=== PATIENT | female | born 1955 | race African-American/Black ===

== ENCOUNTER 2017-05-29 08:37 | Outpatient (CLI) | payer OTHER ==
[~2017-05-29 08:37] MED LIST: LABE200T28 PO; LON10 PO
[2017-05-29] MEDS ORDERED: IOHEXOL 100 ML IV ONE (08:58)
[2017-05-29] MEDS ORDERED: DIATR MEGLU/DIATRIZ SOD 30 ML SOLUTION PO ONE (08:58)
== END 2017-05-29 20:39 | disposition home or self-care (01) ==
LOC: SCT 08:37
PROVIDERS: ATTEND Surgery
DX: K81.9 Cholecystitis, unspecified (principal); K42.9 Umbilical hernia without obstruction or gangrene; I70.8 Atherosclerosis of other arteries; Z90.49 Acquired absence of other specified parts of digestive tract
CPT/HCPCS: 74177; Q9964; Q9967

== ENCOUNTER 2017-08-28 20:01 | Inpatient (IN) | payer OTHER ==
[~2017-08-28] VITALS: Ht 177.8 cm; Wt 78.5 kg
[2017-08-28 20:12] VITALS: BP_SYST 141
[2017-08-28] MEDS ORDERED: NACL 0.9% 1,000 ML IV ONE (20:15)
[2017-08-28] MEDS ORDERED: LIDOCAINE 1% 10 MG/ML, 20 ML MDV INJ ONE (20:30)
[2017-08-28 21:00] LABS: BASOPHILS % (AUTO) 1.2 % (0.0-2.0); EOSINOPHILS # (AUTO) 0.1 K/uL (0.0-0.4); EOSINOPHILS % (AUTO) 2.1 % (0.0-4.0); HEMATOCRIT 37.3 % (36-48); HEMOGLOBIN 12.4 g/dL (12.0-16.0); LYMPHOCYTES # (AUTO) 0.6 K/uL (1.0-5.5); LYMPHOCYTES % (AUTO) 22.9 % (20.5-51.5); MEAN CORPUSCULAR HEMOGLOBIN 32 pg (27-31); MEAN CORPUSCULAR HGB CONC 33 % (32-36); MEAN CORPUSCULAR VOLUME 95 fL (79.0-98.0); MONOCYTES # (AUTO) 0.1 K/uL (0.0-1.0); MONOCYTES % (AUTO) 3.2 % (1.7-9.3); NEUTROPHILS # (AUTO) 1.9 K/uL (1.8-7.7); NEUTROPHILS % (AUTO) 70.6 % (40.0-70.0); PLATELET COUNT (AUTO) 256 K/uL (130-430); RED BLOOD CELL COUNT(AUTO) 3.91 MIL/uL (4.2-6.2); RED CELL DISTRIBUTION WIDTH 12.7 % (9.0-15.0)
[2017-08-28 21:02] LABS: CALCIUM 9.3 mg/dL (8.4-11.0); CREATININE 1.01 mg/dL (0.55-1.30); POTASSIUM 3.7 mmol/L (3.5-5.1)
[2017-08-28 21:04] LABS: WHITE BLOOD COUNT (AUTO) 2.8 K/uL (4.8-10.8)
[2017-08-28 21:07] LABS: TOTAL BILIRUBIN 0.4 mg/dL (0.0-1.0)
[2017-08-28] MEDS ORDERED: HYG25 PO (23:04)
[2017-08-28] MEDS ORDERED: LIP80 PO (23:04)
[2017-08-28] MEDS ORDERED: DIAZ10TA PO (23:05)
[2017-08-28] MEDS ORDERED: OMEP40CA33 PO (23:05)
[2017-08-28] MEDS ORDERED: CYCL-10 PO (23:06)
[2017-08-28] MEDS ORDERED: PHE25 PO (23:06)
[2017-08-28] MEDS ORDERED: HYDR4TAB26 PO (23:06)
[2017-08-28] MEDS ORDERED: ASCO500T20 PO (23:07)
[2017-08-28] MEDS ORDERED: CHOL500052 PO (23:07)
[2017-08-28] MEDS ORDERED: POTA-118 PO (23:08)
[2017-08-28 23:12] VITALS: BP_SYST 129
[2017-08-28] MEDS ORDERED: CYCLOBENZAPRINE HCL 10 MG TABLET (FLEXERIL) PO PRN (23:30)
[2017-08-28] MEDS ORDERED: ONDANSETRON HCL 4 MG/2 ML VIAL IVP PRN (23:30)
[2017-08-28] MEDS ORDERED: DIAZEPAM 5 MG TABLET (VALIUM) PO ONE (23:45)
[2017-08-29] MEDS: KCL 20 mEq in D5NS 1000 mL 1,000 ML IV SCH ×2 (00:12→12:52)
[2017-08-29] MEDS: MORPHINE 2 MG/ML INJ. SYRINGE IVP PRN ×4 (03:51→21:05)
[2017-08-29 07:00] LABS: BASOPHILS % (AUTO) 1.3 % (0.0-2.0); EOSINOPHILS # (AUTO) 0.1 K/uL (0.0-0.4); EOSINOPHILS % (AUTO) 2.3 % (0.0-4.0); HEMATOCRIT 33.1 % (36-48); HEMOGLOBIN 11.1 g/dL (12.0-16.0); LYMPHOCYTES # (AUTO) 1.4 K/uL (1.0-5.5); LYMPHOCYTES % (AUTO) 45.1 % (20.5-51.5); MEAN CORPUSCULAR HEMOGLOBIN 32 pg (27-31); MEAN CORPUSCULAR HGB CONC 34 % (32-36); MEAN CORPUSCULAR VOLUME 95 fL (79.0-98.0); MONOCYTES # (AUTO) 0.2 K/uL (0.0-1.0); MONOCYTES % (AUTO) 8.4 % (1.7-9.3); NEUTROPHILS # (AUTO) 1.2 K/uL (1.8-7.7); NEUTROPHILS % (AUTO) 42.9 % (40.0-70.0); PLATELET COUNT (AUTO) 220 K/uL (130-430); RED CELL DISTRIBUTION WIDTH 12.8 % (9.0-15.0); WHITE BLOOD COUNT (AUTO) 2.9 K/uL (4.8-10.8)
[2017-08-29 07:13] LABS: PROTHROMBIN TIME 10.3 SECS (9.5-12.5)
[2017-08-29 07:31] LABS: ALBUMIN 3.4 g/dL (3.4-4.8); CALCIUM 9.1 mg/dL (8.4-11.0); CREATININE 1.11 mg/dL (0.55-1.30); POTASSIUM 3.2 mmol/L (3.5-5.1); TOTAL BILIRUBIN 0.4 mg/dL (0.0-1.0)
[2017-08-29 08:46] VITALS: BP_SYST 166
[2017-08-29] MEDS: LABETALOL HCL 100 MG TABLET PO SCH ×2 (08:48→21:06)
[2017-08-29] MEDS: PANTOPRAZOLE SODIUM 40 MG/VIAL (PROTONIX) IVP SCH (08:49)
[2017-08-29] MEDS: ENOXAPARIN SODIUM 40 MG/0.4 ML SYRINGE SUBCUT SCH (08:49)
[2017-08-29] MEDS: DIAZEPAM 5 MG TABLET (VALIUM) PO SCH ×3 (08:49→21:07)
[2017-08-29] MEDS ORDERED: POTASSIUM CHLORIDE 10 MEQ TAB.PRT.SR PO SCH (09:00)
[2017-08-29 11:21] VITALS: BP_SYST 135
[2017-08-29] MEDS ORDERED: POTASSIUM CHLORIDE 20 MEQ TAB.PRT.SR PO ONE (11:30)
[2017-08-29 15:21] VITALS: BP_SYST 119
[2017-08-29 19:15] VITALS: BP_SYST 143
[2017-08-30 00:42] VITALS: BP_SYST 136
[2017-08-30] MEDS: MORPHINE 2 MG/ML INJ. SYRINGE IVP PRN ×3 (01:41→14:09)
[2017-08-30 03:06] LABS: BILIRUBIN,URINE NEGATIVE (NEGATIVE); BLOOD, URINE NEGATIVE (NEGATIVE); CLARITY/URINE CLEAR (CLEAR); COLOR,URINE YELLOW (YELLOW); GLUCOSE,URINE NEGATIVE (NEGATIVE); KETONES,URINE NEGATIVE (NEGATIVE); LEUKOCYTE ESTERASE ,URINE NEGATIVE (NEGATIVE); NITRITE, URINE NEGATIVE (NEGATIVE); PROTEIN URINE NEGATIVE (NEGATIVE); UROBILINOGEN,URINE 0.2 (0.2-1.0)
[2017-08-30] MEDS: KCL 20 mEq in D5NS 1000 mL 1,000 ML IV SCH ×2 (05:31→14:32)
[2017-08-30 06:45] LABS: BASOPHILS % (AUTO) 0.8 % (0.0-2.0); EOSINOPHILS # (AUTO) 0.1 K/uL (0.0-0.4); EOSINOPHILS % (AUTO) 2.3 % (0.0-4.0); HEMATOCRIT 32.3 % (36-48); HEMOGLOBIN 11.1 g/dL (12.0-16.0); LYMPHOCYTES # (AUTO) 1.4 K/uL (1.0-5.5); LYMPHOCYTES % (AUTO) 44.9 % (20.5-51.5); MEAN CORPUSCULAR HEMOGLOBIN 33 pg (27-31); MEAN CORPUSCULAR HGB CONC 34 % (32-36); MEAN CORPUSCULAR VOLUME 95 fL (79.0-98.0); MONOCYTES # (AUTO) 0.3 K/uL (0.0-1.0); MONOCYTES % (AUTO) 9.8 % (1.7-9.3); NEUTROPHILS # (AUTO) 1.3 K/uL (1.8-7.7); PLATELET COUNT (AUTO) 212 K/uL (130-430); RED CELL DISTRIBUTION WIDTH 12.6 % (9.0-15.0); WHITE BLOOD COUNT (AUTO) 3.1 K/uL (4.8-10.8)
[2017-08-30 07:28] LABS: ALBUMIN 3.3 g/dL (3.4-4.8); CALCIUM 8.9 mg/dL (8.4-11.0); CREATININE 0.85 mg/dL (0.55-1.30); POTASSIUM 3.6 mmol/L (3.5-5.1); TOTAL BILIRUBIN 0.4 mg/dL (0.0-1.0)
[2017-08-30] MEDS ORDERED: IOHEXOL 50 ML IV ONE (08:36)
[2017-08-30] MEDS: DIAZEPAM 5 MG TABLET (VALIUM) PO SCH ×2 (09:00→14:55)
[2017-08-30] MEDS: LABETALOL HCL 100 MG TABLET PO SCH ×2 (09:00→12:29)
[2017-08-30] MEDS ORDERED: ONDANSETRON HCL 4 MG/2 ML VIAL IVP PRN (09:45)
[2017-08-30] MEDS ORDERED: fentaNYL CITRATE/PF 100 MCG/2 ML AMP IVP PRN ×2 (09:45)
[2017-08-30 10:41] VITALS: BP_SYST 136
[2017-08-30] MEDS ORDERED: MIDAZOLAM HCL 5 MG/ML VIAL (VERSED) IV ONE (10:41)
[2017-08-30] MEDS ORDERED: PROPOFOL 200MG/ 20ML VIAL (DIPRIVAN) IV ONE (10:41)
[2017-08-30] MEDS ORDERED: INDOMETHACIN 50 MG SUPP.RECT ONE (10:41)
[2017-08-30] MEDS ORDERED: hydrALAZINE HCL 20 MG/ML VIAL ONE (10:41)
[2017-08-30] MEDS ORDERED: LR 1,000 ML IV.SOLN IV ONE (10:41)
[2017-08-30] MEDS ORDERED: NS IRRIG SOLN 1000 ML IR ONE (10:41)
[2017-08-30 11:12] LABS: NEUTROPHILS % (AUTO) 42.2 % (40.0-70.0)
[2017-08-30 11:30] VITALS: BP_SYST 168
[2017-08-30] MEDS: PANTOPRAZOLE SODIUM 40 MG/VIAL (PROTONIX) IVP SCH (12:28)
[2017-08-30] MEDS: ENOXAPARIN SODIUM 40 MG/0.4 ML SYRINGE SUBCUT SCH (12:28)
[2017-08-30] MEDS ORDERED: DIATR MEGLU/DIATRIZ SOD 30 ML SOLUTION PO ONE (14:57)
[2017-08-30] MEDS ORDERED: MORPHINE 2 MG/ML INJ. SYRINGE IVP PRN (15:00)
[2017-08-30] MEDS ORDERED: MORPHINE 4 MG/ML INJ. SYRINGE ONE (15:12)
[2017-08-30 16:00] VITALS: BP_SYST 195
[2017-08-30] MEDS: HYDROmorphone 2 MG/ML VIAL IVP PRN ×2 (17:04→20:04)
[2017-08-30] MEDS ORDERED: LR 1,000 ML IV SCH (17:45)
[2017-08-30 20:44] VITALS: BP_SYST 95
[2017-08-30] MEDS ORDERED: MEROPENEM 1 GM in NS 100 ML IV SCH (22:00)
== END 2017-08-30 21:45 | disposition short-term general hospital (02) | DRG 446 ==
LOC: SED 20:01 → SMU 22:53
PROVIDERS: ADMIT Family Medicine; ATTEND Family Medicine
PROC: BF141ZZ Fluoroscopy of Gallbladder, Bile Ducts and Pancreatic Ducts using Low Osmolar Contrast (ICD-10-PCS; 2017-08-30)
PROC: 0F798ZZ Dilation of Common Bile Duct, Via Natural or Artificial Opening Endoscopic (ICD-10-PCS; principal; 2017-08-30 08:00)
DX: K83.1 Obstruction of bile duct (principal); K83.8 Other specified diseases of biliary tract; E78.5 Hyperlipidemia, unspecified; I10 Essential (primary) hypertension; D72.819 Decreased white blood cell count, unspecified; K21.9 Gastro-esophageal reflux disease without esophagitis; Z90.49 Acquired absence of other specified parts of digestive tract; Z98.2 Presence of cerebrospinal fluid drainage device; Z88.1 Allergy status to other antibiotic agents; Z88.0 Allergy status to penicillin; Z88.8 Allergy status to other drugs, medicaments and biological substances; Z79.899 Other long term (current) drug therapy
CPT/HCPCS: 36415; 71045; 76000; 76700-TC; 78226; 80053; 81003; 82150-TC; 83690-TC; 83735-TC; 84484; 85025; 85610-TC; 85730-TC; 87081; 93005; 96360; 99285; A9537; C1769; C9113; J0360; J1170; J1650; J2001; J2185; J2250; J2270; J2405; J2704; J7042; J7120; Q9964; Q9967

== ENCOUNTER 2018-04-15 17:18 | Inpatient (IN) | payer OTHER ==
[~2018-04-15] VITALS: Ht 177.8 cm; Wt 88.9 kg
[~2018-04-15 17:18] MED LIST changes: +ASCO500T20 PO; +CHOL500052 PO; +CLINDAMYCIN PHOSPHATE 600 mg/50mL D5W IV ONE; +CYCL-10 PO; +DIAZ10TA PO; +GLYCOPYRROLATE 0.2 MG/ML VIAL IJ ONE; +HYDR4TAB26 PO; +HYG25 PO; +LIDOCAINE 2%, 20 ML MDV INJ ONE; +LIP80 PO; +LR 1,000 ML IV.SOLN IV ONE; +MIDAZOLAM HCL 5 MG/5 ML VIAL IVP ONE; +NEOSTIGMINE METHYLSULFATE 1 MG/ML, 10 ML VIAL IVP ONE; +NS IRRIG SOLN 1000 ML IR ONE; +OMEP40CA33 PO; +PHE25 PO; +POTA10TA15 PO; +PROPOFOL 200MG/ 20ML VIAL (DIPRIVAN) IV ONE; +SEVOFLURANE 15 MIN GAS INH ONE; +fentaNYL CITRATE/PF 100 MCG/2 ML AMP IVP ONE
[2018-04-15 17:25] VITALS: BP_SYST 121
[2018-04-15 18:38] LABS: BILIRUBIN,URINE NEGATIVE (NEGATIVE); BLOOD, URINE NEGATIVE (NEGATIVE); CLARITY/URINE CLEAR (CLEAR); COLOR,URINE YELLOW (YELLOW); GLUCOSE,URINE NEGATIVE (NEGATIVE); KETONES,URINE NEGATIVE (NEGATIVE); LEUKOCYTE ESTERASE ,URINE NEGATIVE (NEGATIVE); NITRITE, URINE NEGATIVE (NEGATIVE); PROTEIN URINE NEGATIVE (NEGATIVE); UROBILINOGEN,URINE 0.2 (0.2-1.0)
[2018-04-15 18:41] LABS: HEMOGLOBIN 12.3 g/dL (12.0-16.0); RED BLOOD CELL COUNT(AUTO) 4.01 MIL/uL (4.2-6.2); WHITE BLOOD COUNT (AUTO) 2.4 K/uL (4.8-10.8)
[2018-04-15 18:42] LABS: HEMATOCRIT 37.4 % (36-48); MEAN CORPUSCULAR HEMOGLOBIN 31 pg (27-31); MEAN CORPUSCULAR HGB CONC 33 % (32-36); MEAN CORPUSCULAR VOLUME 93 fL (79.0-98.0); PLATELET COUNT (AUTO) 277 K/uL (130-430); RED CELL DISTRIBUTION WIDTH 13.3 % (9.0-15.0)
[2018-04-15 18:43] LABS: BASOPHILS % (AUTO) 1.4 % (0.0-2.0); EOSINOPHILS % (AUTO) 1.9 % (0.0-4.0); LYMPHOCYTES # (AUTO) 0.9 K/uL (1.0-5.5); LYMPHOCYTES % (AUTO) 38.3 % (20.5-51.5); MONOCYTES # (AUTO) 0.2 K/uL (0.0-1.0); MONOCYTES % (AUTO) 9.4 % (1.7-9.3); NEUTROPHILS # (AUTO) 1.2 K/uL (1.8-7.7)
[2018-04-15 18:47] LABS: CALCIUM 8.8 mg/dL (8.4-11.0); CREATININE 1.19 mg/dL (0.55-1.30); POTASSIUM 3.3 mmol/L (3.5-5.1)
[2018-04-15 18:53] LABS: ALBUMIN 3.7 g/dL (3.4-4.8); TOTAL BILIRUBIN 0.4 mg/dL (0.0-1.0)
[2018-04-15] MEDS ORDERED: fentaNYL CITRATE/PF 100 MCG/2 ML AMP IVP ONE (19:30)
[2018-04-15 20:20] VITALS: BP_SYST 138
[2018-04-15] MEDS ORDERED: CYCLOBENZAPRINE HCL 10 MG TABLET (FLEXERIL) PO PRN (21:15)
[2018-04-15 21:28] LABS: PROTHROMBIN TIME 10.3 SECS (9.5-12.5)
[2018-04-15] MEDS: ONDANSETRON HCL 4 MG/2 ML VIAL IVP PRN (21:45)
[2018-04-15] MEDS: HYDROmorphone 2 MG/ML VIAL IVP PRN (21:46)
[2018-04-15] MEDS: KCL 20 mEq in D5/0.45NS 1000mL 1,000 ML IV SCH (22:55)
[2018-04-15 23:32] VITALS: BP_SYST 127
[2018-04-16] MEDS: HYDROmorphone 2 MG/ML VIAL IVP PRN ×4 (02:48→21:21)
[2018-04-16] MEDS: ONDANSETRON HCL 4 MG/2 ML VIAL IVP PRN ×3 (03:59→21:21)
[2018-04-16] MEDS: KCL 20 mEq in D5/0.45NS 1000mL 1,000 ML IV SCH ×2 (08:50→18:53)
[2018-04-16] MEDS: ENOXAPARIN SODIUM 40 MG/0.4 ML SYRINGE SUBCUT SCH (09:00)
[2018-04-16] MEDS: CHOLECALCIFEROL (VITAMIN D3) 2,000 UNIT TABLET PO SCH (09:03)
[2018-04-16] MEDS: ASCORBIC ACID 500 MG TABLET PO SCH (09:03)
[2018-04-16] MEDS: ATORVASTATIN 20 MG TABLET PO SCH (09:03)
[2018-04-16] MEDS: PANTOPRAZOLE SODIUM 40 MG/VIAL (PROTONIX) IVP SCH (09:03)
[2018-04-16] MEDS: POTASSIUM CHLORIDE 10 MEQ TAB.PRT.SR PO SCH (09:04)
[2018-04-16] MEDS: DIAZEPAM 5 MG TABLET (VALIUM) PO SCH ×3 (09:04→20:22)
[2018-04-16] MEDS: MINOXIDIL 10 MG TABLET (LONITEN) PO SCH (09:10)
[2018-04-16] MEDS: LABETALOL HCL 100 MG TABLET PO SCH ×2 (09:10→20:22)
[2018-04-16] MEDS: CHLORTHALIDONE 25 MG TABLET (HYGROTON) PO SCH (09:11)
[2018-04-16 09:25] VITALS: BP_SYST 133
[2018-04-16 12:45] VITALS: BP_SYST 102
[2018-04-16 16:35] VITALS: BP_SYST 110
[2018-04-16] MEDS: DIPHENHYDRAMINE INJ 50 MG/ML VIAL IVP PRN (18:53)
[2018-04-16 20:00] VITALS: BP_SYST 101
[2018-04-17] VITALS (12 sets, daily range): BP systolic 99–142
[2018-04-17] MEDS: HYDROmorphone 2 MG/ML VIAL IVP PRN ×2 (01:08→05:35)
[2018-04-17] MEDS: ONDANSETRON HCL 4 MG/2 ML VIAL IVP PRN (05:33)
[2018-04-17] MEDS: ATORVASTATIN 20 MG TABLET PO SCH (09:00)
[2018-04-17] MEDS: ENOXAPARIN SODIUM 40 MG/0.4 ML SYRINGE SUBCUT SCH (09:00)
[2018-04-17] MEDS: PANTOPRAZOLE SODIUM 40 MG/VIAL (PROTONIX) IVP SCH (09:00)
[2018-04-17] MEDS: DIAZEPAM 5 MG TABLET (VALIUM) PO SCH ×3 (09:00→20:03)
[2018-04-17] MEDS: CHOLECALCIFEROL (VITAMIN D3) 2,000 UNIT TABLET PO SCH (09:00)
[2018-04-17] MEDS: MINOXIDIL 10 MG TABLET (LONITEN) PO SCH (09:00)
[2018-04-17] MEDS: LABETALOL HCL 100 MG TABLET PO SCH ×2 (09:00→20:02)
[2018-04-17] MEDS: ASCORBIC ACID 500 MG TABLET PO SCH (09:00)
[2018-04-17] MEDS: POTASSIUM CHLORIDE 10 MEQ TAB.PRT.SR PO SCH (09:00)
[2018-04-17] MEDS: CHLORTHALIDONE 25 MG TABLET (HYGROTON) PO SCH (09:00)
[2018-04-17] MEDS ORDERED: KETOROLAC TROMETHAMINE 30 MG VIAL IVP PRN (09:15)
[2018-04-17] MEDS ORDERED: fentaNYL CITRATE/PF 100 MCG/2 ML AMP IVP PRN ×2 (09:15)
[2018-04-17] MEDS ORDERED: ONDANSETRON HCL 4 MG/2 ML VIAL IVP PRN ×3 (09:15→12:00)
[2018-04-17] MEDS ORDERED: POLYMYXIN 500,000/BACIT.10,000 UNITS in NS IRR 1 L IR ONE (09:50)
[2018-04-17] MEDS ORDERED: NACL 0.9% 1,000 ML IV SCH ×2 (11:48)
[2018-04-17] MEDS ORDERED: ACETAMINOPHEN 325 MG TABLET PO PRN (12:00)
[2018-04-17] MEDS ORDERED: MORPHINE 4 MG/ML INJ. SYRINGE IVP PRN (12:00)
[2018-04-17] MEDS ORDERED: HYDROcodone/ACETAMIN 5-325 MG TAB (NORCO/ VICODIN) PO PRN (12:00)
[2018-04-17] MEDS ORDERED: HYDROmorphone 2 MG/ML VIAL IM PRN (12:15)
[2018-04-17] MEDS ORDERED: fentaNYL CITRATE/PF 100 MCG/2 ML AMP ONE (12:29)
[2018-04-17] MEDS ORDERED: KETOROLAC TROMETHAMINE 30 MG VIAL IVP ONE (12:40)
[2018-04-17] MEDS ORDERED: KETOROLAC TROMETHAMINE 30 MG VIAL ONE (12:47)
[2018-04-17 14:13] LABS: BASOPHILS % (AUTO) 0.2 % (0.0-2.0); EOSINOPHILS % (AUTO) 0.5 % (0.0-4.0); HEMATOCRIT 28.5 % (36-48); HEMOGLOBIN 9.5 g/dL (12.0-16.0); LYMPHOCYTES # (AUTO) 0.5 K/uL (1.0-5.5); LYMPHOCYTES % (AUTO) 7.6 % (20.5-51.5); MEAN CORPUSCULAR HEMOGLOBIN 31 pg (27-31); MEAN CORPUSCULAR HGB CONC 33 % (32-36); MEAN CORPUSCULAR VOLUME 93 fL (79.0-98.0); MONOCYTES # (AUTO) 0.3 K/uL (0.0-1.0); NEUTROPHILS # (AUTO) 5.3 K/uL (1.8-7.7); NEUTROPHILS % (AUTO) 86.7 % (40.0-70.0); PLATELET COUNT (AUTO) 206 K/uL (130-430); RED BLOOD CELL COUNT(AUTO) 3.05 MIL/uL (4.2-6.2); RED CELL DISTRIBUTION WIDTH 12.8 % (9.0-15.0)
[2018-04-17 14:14] LABS: WHITE BLOOD COUNT (AUTO) 6.1 K/uL (4.8-10.8)
[2018-04-17 14:26] LABS: CALCIUM 7.7 mg/dL (8.4-11.0); CREATININE 1.13 mg/dL (0.55-1.30); POTASSIUM 3.4 mmol/L (3.5-5.1)
[2018-04-17 14:30] LABS: ALBUMIN 2.5 g/dL (3.4-4.8); TOTAL BILIRUBIN 0.5 mg/dL (0.0-1.0)
[2018-04-17] MEDS ORDERED: HYDROmorphone 2 MG/ML VIAL IVP PRN (14:45)
[2018-04-17 15:10] LABS: INR 1.9 (0.8-1.2); PROTHROMBIN TIME 19.3 SECS (9.5-12.5)
[2018-04-17] MEDS ORDERED: COMMUNICATION ORDER XX ONE (16:00)
[2018-04-17] MEDS: HYDROMORPHONE PCA 10 mg/50 mL IV PRN (16:06)
[2018-04-17] MEDS ORDERED: NALOXONE HCL 0.4 MG/ML AMP (NARCAN) IVP PRN (16:15)
[2018-04-17] MEDS ORDERED: NS IV ONE ×2 (16:30)
[2018-04-17] MEDS ORDERED: PROTAMINE SULFATE IV ONE ×2 (16:30)
[2018-04-17 17:17] LABS: HEMATOCRIT 25.1 % (36-48)
[2018-04-17 17:25] LABS: HEMOGLOBIN 8.3 g/dL (12.0-16.0)
[2018-04-17 19:34] LABS: HEMATOCRIT 27.2 % (36-48); HEMOGLOBIN 9.1 g/dL (12.0-16.0)
[2018-04-17] MEDS: KCL 20 mEq in D5NS 1000 mL 1,000 ML IV SCH (19:57)
[2018-04-18] VITALS (25 sets, daily range): BP systolic 92–142
[2018-04-18] MEDS: KCL 20 mEq in D5NS 1000 mL 1,000 ML IV SCH ×2 (04:44→16:08)
[2018-04-18 06:39] LABS: HEMATOCRIT 22.9 % (36-48); HEMOGLOBIN 7.7 g/dL (12.0-16.0); RED BLOOD CELL COUNT(AUTO) 2.45 MIL/uL (4.2-6.2); WHITE BLOOD COUNT (AUTO) 3.9 K/uL (4.8-10.8)
[2018-04-18 06:40] LABS: BASOPHILS % (AUTO) 0.2 % (0.0-2.0); EOSINOPHILS % (AUTO) 2.9 % (0.0-4.0); LYMPHOCYTES # (AUTO) 0.5 K/uL (1.0-5.5); MEAN CORPUSCULAR HEMOGLOBIN 31 pg (27-31); MEAN CORPUSCULAR HGB CONC 34 % (32-36); MEAN CORPUSCULAR VOLUME 93 fL (79.0-98.0); MONOCYTES # (AUTO) 0.4 K/uL (0.0-1.0); MONOCYTES % (AUTO) 10.2 % (1.7-9.3); NEUTROPHILS # (AUTO) 2.8 K/uL (1.8-7.7); NEUTROPHILS % (AUTO) 72.7 % (40.0-70.0); PLATELET COUNT (AUTO) 177 K/uL (130-430); RED CELL DISTRIBUTION WIDTH 13.2 % (9.0-15.0)
[2018-04-18 06:41] LABS: EOSINOPHILS # (AUTO) 0.1 K/uL (0.0-0.4)
[2018-04-18 06:56] LABS: ALBUMIN 2.6 g/dL (3.4-4.8); CALCIUM 7.5 mg/dL (8.4-11.0); CREATININE 1.08 mg/dL (0.55-1.30); POTASSIUM 3.5 mmol/L (3.5-5.1); TOTAL BILIRUBIN 0.4 mg/dL (0.0-1.0)
[2018-04-18] MEDS: ASCORBIC ACID 500 MG TABLET PO SCH (09:00)
[2018-04-18] MEDS: CHLORTHALIDONE 25 MG TABLET (HYGROTON) PO SCH (09:00)
[2018-04-18] MEDS: POTASSIUM CHLORIDE 10 MEQ TAB.PRT.SR PO SCH (09:00)
[2018-04-18] MEDS: CHOLECALCIFEROL (VITAMIN D3) 2,000 UNIT TABLET PO SCH (09:00)
[2018-04-18] MEDS: MINOXIDIL 10 MG TABLET (LONITEN) PO SCH (09:00)
[2018-04-18] MEDS: LABETALOL HCL 100 MG TABLET PO SCH ×2 (09:00→21:00)
[2018-04-18] MEDS: HYDROMORPHONE PCA 10 mg/50 mL IV PRN (09:15)
[2018-04-18] MEDS: PANTOPRAZOLE SODIUM 40 MG/VIAL (PROTONIX) IVP SCH (10:16)
[2018-04-18 11:21] LABS: INR 1.2 (0.8-1.2); PROTHROMBIN TIME 12.2 SECS (9.5-12.5)
[2018-04-18] MEDS: DIAZEPAM 5 MG TABLET (VALIUM) PO SCH ×3 (15:00→21:54)
[2018-04-18 15:28] LABS: HEMATOCRIT 19.6 % (36-48); HEMOGLOBIN 6.5 g/dL (12.0-16.0)
[2018-04-18] MEDS: ATORVASTATIN 20 MG TABLET PO SCH (16:04)
[2018-04-18] MEDS: DIPHENHYDRAMINE INJ 50 MG/ML VIAL IVP PRN (17:39)
[2018-04-19] VITALS (22 sets, daily range): BP systolic 101–210
[2018-04-19] MEDS: DIPHENHYDRAMINE INJ 50 MG/ML VIAL IVP PRN ×2 (01:12→09:49)
[2018-04-19] MEDS: HYDROMORPHONE PCA 10 mg/50 mL IV PRN (01:19)
[2018-04-19] MEDS: KCL 20 mEq in D5NS 1000 mL 1,000 ML IV SCH ×3 (02:44→21:55)
[2018-04-19 07:10] LABS: CALCIUM 7.7 mg/dL (8.4-11.0); CREATININE 1.09 mg/dL (0.55-1.30); POTASSIUM 3.5 mmol/L (3.5-5.1)
[2018-04-19 07:26] LABS: ALBUMIN 2.3 g/dL (3.4-4.8); TOTAL BILIRUBIN 0.5 mg/dL (0.0-1.0)
[2018-04-19 07:51] LABS: WHITE BLOOD COUNT (AUTO) 3.3 K/uL (4.8-10.8)
[2018-04-19 07:52] LABS: RED BLOOD CELL COUNT(AUTO) 1.97 MIL/uL (4.2-6.2)
[2018-04-19 07:53] LABS: HEMOGLOBIN 6.3 g/dL (12.0-16.0)
[2018-04-19 07:54] LABS: HEMATOCRIT 18.4 % (36-48); MEAN CORPUSCULAR HEMOGLOBIN 32 pg (27-31); MEAN CORPUSCULAR HGB CONC 34 % (32-36); MEAN CORPUSCULAR VOLUME 93 fL (79.0-98.0); PLATELET COUNT (AUTO) 132 K/uL (130-430)
[2018-04-19] MEDS ORDERED: MILK OF MAGNESIA 30 ML UDC PO ONE (08:45)
[2018-04-19] MEDS ORDERED: BISACODYL 10 MG/SUPPOSITORY RC ONE (08:45)
[2018-04-19] MEDS: LABETALOL HCL 100 MG TABLET PO SCH ×3 (09:00→21:00)
[2018-04-19] MEDS: MINOXIDIL 10 MG TABLET (LONITEN) PO SCH ×2 (09:00→18:35)
[2018-04-19] MEDS: CHLORTHALIDONE 25 MG TABLET (HYGROTON) PO SCH ×2 (09:00→18:34)
[2018-04-19] MEDS: DIAZEPAM 5 MG TABLET (VALIUM) PO SCH ×3 (09:41→21:58)
[2018-04-19] MEDS: CHOLECALCIFEROL (VITAMIN D3) 2,000 UNIT TABLET PO SCH (09:42)
[2018-04-19] MEDS: ATORVASTATIN 20 MG TABLET PO SCH (09:42)
[2018-04-19] MEDS: ASCORBIC ACID 500 MG TABLET PO SCH (09:42)
[2018-04-19] MEDS: PANTOPRAZOLE SODIUM 40 MG/VIAL (PROTONIX) IVP SCH (09:49)
[2018-04-19 11:26] LABS: BASOPHILS % (AUTO) 0.2 % (0.0-2.0); EOSINOPHILS # (AUTO) 0.2 K/uL (0.0-0.4); LYMPHOCYTES # (AUTO) 0.6 K/uL (1.0-5.5); LYMPHOCYTES % (AUTO) 19.1 % (20.5-51.5); MONOCYTES # (AUTO) 0.4 K/uL (0.0-1.0); MONOCYTES % (AUTO) 13.2 % (1.7-9.3); NEUTROPHILS % (AUTO) 64.5 % (40.0-70.0)
[2018-04-19] MEDS ORDERED: ACETAMINOPHEN 325 MG TABLET PO ONE (12:30)
[2018-04-19] MEDS ORDERED: DIPHENHYDRAMINE INJ 50 MG/ML VIAL IVP ONE (13:30)
[2018-04-19] MEDS: POTASSIUM CHLORIDE 10 MEQ TAB.PRT.SR PO SCH (14:01)
[2018-04-20 01:06] VITALS: BP_SYST 105
[2018-04-20] MEDS: KCL 20 mEq in D5NS 1000 mL 1,000 ML IV SCH ×2 (06:30→17:04)
[2018-04-20 07:22] LABS: TOTAL IRON BIND. CAPACITY 190 ug/dL (250-450)
[2018-04-20 08:00] VITALS: BP_SYST 135
[2018-04-20] MEDS ORDERED: MILK OF MAGNESIA 30 ML UDC PO PRN (08:30)
[2018-04-20] MEDS: CHLORTHALIDONE 25 MG TABLET (HYGROTON) PO SCH (09:00)
[2018-04-20 09:10] LABS: HEMATOCRIT 21.6 % (36-48); HEMOGLOBIN 7.3 g/dL (12.0-16.0); RED BLOOD CELL COUNT(AUTO) 2.37 MIL/uL (4.2-6.2)
[2018-04-20 09:11] LABS: MEAN CORPUSCULAR HEMOGLOBIN 31 pg (27-31); MEAN CORPUSCULAR HGB CONC 34 % (32-36); MEAN CORPUSCULAR VOLUME 92 fL (79.0-98.0); PLATELET COUNT (AUTO) 144 K/uL (130-430); RED CELL DISTRIBUTION WIDTH 13.4 % (9.0-15.0)
[2018-04-20] MEDS: PANTOPRAZOLE SODIUM 40 MG/VIAL (PROTONIX) IVP SCH (10:23)
[2018-04-20] MEDS: ATORVASTATIN 20 MG TABLET PO SCH (10:24)
[2018-04-20] MEDS: LABETALOL HCL 100 MG TABLET PO SCH ×2 (10:26→21:55)
[2018-04-20] MEDS: ASCORBIC ACID 500 MG TABLET PO SCH (10:27)
[2018-04-20] MEDS: CHOLECALCIFEROL (VITAMIN D3) 2,000 UNIT TABLET PO SCH (10:27)
[2018-04-20] MEDS: MINOXIDIL 10 MG TABLET (LONITEN) PO SCH (10:28)
[2018-04-20] MEDS: DIAZEPAM 5 MG TABLET (VALIUM) PO SCH ×3 (10:28→21:54)
[2018-04-20] MEDS: POTASSIUM CHLORIDE 10 MEQ TAB.PRT.SR PO SCH (10:28)
[2018-04-20 10:36] LABS: BASOPHILS % (AUTO) 0.1 % (0.0-2.0); EOSINOPHILS % (AUTO) 6.8 % (0.0-4.0); LYMPHOCYTES % (AUTO) 12.3 % (20.5-51.5); MONOCYTES % (AUTO) 10.5 % (1.7-9.3); NEUTROPHILS % (AUTO) 70.3 % (40.0-70.0); WHITE BLOOD COUNT (AUTO) 3.4 K/uL (4.8-10.8)
[2018-04-20 10:37] LABS: EOSINOPHILS # (AUTO) 0.2 K/uL (0.0-0.4); LYMPHOCYTES # (AUTO) 0.4 K/uL (1.0-5.5); MONOCYTES # (AUTO) 0.4 K/uL (0.0-1.0); NEUTROPHILS # (AUTO) 2.4 K/uL (1.8-7.7)
[2018-04-20 11:28] VITALS: BP_SYST 129
[2018-04-20] MEDS ORDERED: DIPHENHYDRAMINE INJ 50 MG/ML VIAL IVP ONE (14:15)
[2018-04-20] MEDS ORDERED: ACETAMINOPHEN 325 MG TABLET PO ONE (14:15)
[2018-04-20 15:34] VITALS: BP_SYST 100
[2018-04-20] MEDS ORDERED: BISACODYL 10 MG/SUPPOSITORY RC ONE (15:45)
[2018-04-20 19:30] VITALS: BP_SYST 127
[2018-04-20 22:57] VITALS: BP_SYST 135
[2018-04-21] MEDS: KCL 20 mEq in D5NS 1000 mL 1,000 ML IV SCH (02:48)
[2018-04-21 07:09] VITALS: BP_SYST 135
[2018-04-21 08:06] LABS: CALCIUM 8.4 mg/dL (8.4-11.0); CREATININE 1.02 mg/dL (0.55-1.30); POTASSIUM 4.2 mmol/L (3.5-5.1)
[2018-04-21 08:30] VITALS: BP_SYST 121
[2018-04-21 08:46] LABS: WHITE BLOOD COUNT (AUTO) 2.9 K/uL (4.8-10.8)
[2018-04-21 08:47] LABS: HEMATOCRIT 27.8 % (36-48); HEMOGLOBIN 9.2 g/dL (12.0-16.0); MEAN CORPUSCULAR HEMOGLOBIN 31 pg (27-31); MEAN CORPUSCULAR HGB CONC 33 % (32-36); MEAN CORPUSCULAR VOLUME 93 fL (79.0-98.0); RED BLOOD CELL COUNT(AUTO) 2.99 MIL/uL (4.2-6.2); RED CELL DISTRIBUTION WIDTH 14.4 % (9.0-15.0)
[2018-04-21] MEDS: ATORVASTATIN 20 MG TABLET PO SCH (09:00)
[2018-04-21] MEDS: DIAZEPAM 5 MG TABLET (VALIUM) PO SCH ×3 (09:00→21:14)
[2018-04-21] MEDS: POTASSIUM CHLORIDE 10 MEQ TAB.PRT.SR PO SCH (09:00)
[2018-04-21] MEDS: MINOXIDIL 10 MG TABLET (LONITEN) PO SCH (09:00)
[2018-04-21] MEDS: CHOLECALCIFEROL (VITAMIN D3) 2,000 UNIT TABLET PO SCH (09:00)
[2018-04-21] MEDS: ASCORBIC ACID 500 MG TABLET PO SCH (09:00)
[2018-04-21] MEDS: CHLORTHALIDONE 25 MG TABLET (HYGROTON) PO SCH (09:00)
[2018-04-21] MEDS: LABETALOL HCL 100 MG TABLET PO SCH ×2 (09:00→21:14)
[2018-04-21] MEDS: PANTOPRAZOLE SODIUM 40 MG/VIAL (PROTONIX) IVP SCH (09:00)
[2018-04-21 09:49] LABS: BASOPHILS % (AUTO) 0.3 % (0.0-2.0); EOSINOPHILS % (AUTO) 8.6 % (0.0-4.0); LYMPHOCYTES % (AUTO) 24.5 % (20.5-51.5); MONOCYTES % (AUTO) 15.1 % (1.7-9.3); NEUTROPHILS # (AUTO) 1.5 K/uL (1.8-7.7); NEUTROPHILS % (AUTO) 51.5 % (40.0-70.0)
[2018-04-21 09:50] LABS: EOSINOPHILS # (AUTO) 0.3 K/uL (0.0-0.4); LYMPHOCYTES # (AUTO) 0.7 K/uL (1.0-5.5); MONOCYTES # (AUTO) 0.4 K/uL (0.0-1.0)
[2018-04-21 09:51] LABS: PLATELET COUNT (AUTO) 158 K/uL (130-430)
[2018-04-21 13:08] VITALS: BP_SYST 119
[2018-04-21] MEDS: HYDROmorphone 2 MG TAB PO PRN (16:12)
[2018-04-21 16:55] VITALS: BP_SYST 120
[2018-04-22] MEDS: HYDROmorphone 2 MG TAB PO PRN ×3 (00:55→09:16)
[2018-04-22 08:22] VITALS: BP_SYST 132
[2018-04-22] MEDS: ATORVASTATIN 20 MG TABLET PO SCH (08:53)
[2018-04-22] MEDS: PANTOPRAZOLE SODIUM 40 MG/VIAL (PROTONIX) IVP SCH (08:53)
[2018-04-22] MEDS: POTASSIUM CHLORIDE 10 MEQ TAB.PRT.SR PO SCH (08:53)
[2018-04-22] MEDS: CHOLECALCIFEROL (VITAMIN D3) 2,000 UNIT TABLET PO SCH (08:54)
[2018-04-22] MEDS: ASCORBIC ACID 500 MG TABLET PO SCH (08:56)
[2018-04-22] MEDS: DIAZEPAM 5 MG TABLET (VALIUM) PO SCH ×2 (08:56→15:42)
[2018-04-22] MEDS: MINOXIDIL 10 MG TABLET (LONITEN) PO SCH (08:57)
[2018-04-22] MEDS: LABETALOL HCL 100 MG TABLET PO SCH (08:57)
[2018-04-22] MEDS: CHLORTHALIDONE 25 MG TABLET (HYGROTON) PO SCH (09:00)
[2018-04-22 11:15] VITALS: BP_SYST 98
[2018-04-22 12:02] VITALS: BP_SYST 119
[2018-04-22] MEDS ORDERED: HYDROmorphone 2 MG/ML VIAL IVP ONE (16:00)
[2018-04-22 16:02] VITALS: BP_SYST 98
[2018-04-22] MEDS ORDERED: HYDR2TAB4 PO (17:16)
[2018-04-22] MEDS ORDERED: ONDA4TAB5 PO (17:17)
== END 2018-04-22 19:00 | disposition home health service (06) | DRG 354 ==
LOC: SED 17:18 → SMU 18:12 → STU 22:48 → SIC 04-17 14:02 → STU 04-19 18:54 → SMU 04-21 21:20
PROVIDERS: ADMIT Family Medicine; ATTEND Family Medicine
PROC: 05HY33Z Insertion of Infusion Device into Upper Vein, Percutaneous Approach (ICD-10-PCS; 2018-04-16)
PROC: B54NZZA Ultrasonography of Left Upper Extremity Veins, Guidance (ICD-10-PCS; 2018-04-16)
PROC: 0WUF0KZ Supplement Abdominal Wall with Nonautologous Tissue Substitute, Open Approach (ICD-10-PCS; principal; 2018-04-17 08:30)
PROC: 30233N1 Transfusion of Nonautologous Red Blood Cells into Peripheral Vein, Percutaneous Approach (ICD-10-PCS; 2018-04-18)
DX: K43.6 Other and unspecified ventral hernia with obstruction, without gangrene (principal); L76.32 Postprocedural hematoma of skin and subcutaneous tissue following other procedure; I10 Essential (primary) hypertension; D50.0 Iron deficiency anemia secondary to blood loss (chronic); G89.29 Other chronic pain; I95.81 Postprocedural hypotension; K21.9 Gastro-esophageal reflux disease without esophagitis; K43.2 Incisional hernia without obstruction or gangrene; M19.90 Unspecified osteoarthritis, unspecified site; G43.909 Migraine, unspecified, not intractable, without status migrainosus; Z90.49 Acquired absence of other specified parts of digestive tract; Z88.8 Allergy status to other drugs, medicaments and biological substances; Z88.0 Allergy status to penicillin; Z88.1 Allergy status to other antibiotic agents; Z79.899 Other long term (current) drug therapy; Y83.8 Other surgical procedures as the cause of abnormal reaction of the patient, or of later complication, without mention of misadventure at the time of the procedure; Y82.8 Other medical devices associated with adverse incidents; Y92.89 Other specified places as the place of occurrence of the external cause
CPT/HCPCS: 36415; 36600; 71045; 80048; 80053; 81003; 82607; 82728; 82746; 82803-TC; 83540-TC; 83550-TC; 83690-TC; 85018-TC; 85025; 85610-TC; 85730-TC; 86886; 86900; 86901; 86920; 87081; 88302; 88305; 93005; 94760; 97116-GP; 97530-GP; 99285; C1751; C1781; C9113; G0378; J1170; J1200; J1650; J1885; J2001; J2250; J2405; J2704; J2710; J2720; J3010; J3490; J7030; J7040; J7042; J7050; J7120; P9021; Q4118

== ENCOUNTER 2018-04-25 06:37 | Emergency (ER) | payer OTHER ==
[~2018-04-25] VITALS: Ht 177.8 cm; Wt 47.6 kg
[~2018-04-25 06:37] MED LIST changes: -CLINDAMYCIN PHOSPHATE 600 mg/50mL D5W IV ONE; -GLYCOPYRROLATE 0.2 MG/ML VIAL IJ ONE; +HYDR2TAB4 PO; -HYDR4TAB26 PO; -LIDOCAINE 2%, 20 ML MDV INJ ONE; -LR 1,000 ML IV.SOLN IV ONE; -MIDAZOLAM HCL 5 MG/5 ML VIAL IVP ONE; -NEOSTIGMINE METHYLSULFATE 1 MG/ML, 10 ML VIAL IVP ONE; -NS IRRIG SOLN 1000 ML IR ONE; +ONDA4TAB5 PO; -PROPOFOL 200MG/ 20ML VIAL (DIPRIVAN) IV ONE; -SEVOFLURANE 15 MIN GAS INH ONE; -fentaNYL CITRATE/PF 100 MCG/2 ML AMP IVP ONE
[2018-04-25 06:40] VITALS: BP_SYST 113
[2018-04-25 07:35] VITALS: BP_SYST 113
== END 2018-04-25 07:35 | disposition home or self-care (01) ==
LOC: SED 06:37
DX: K91.89 Other postprocedural complications and disorders of digestive system (principal); I10 Essential (primary) hypertension; Z88.0 Allergy status to penicillin; Z88.1 Allergy status to other antibiotic agents; Z88.8 Allergy status to other drugs, medicaments and biological substances; Z79.899 Other long term (current) drug therapy
CPT/HCPCS: 99282; 99283

== ENCOUNTER 2018-05-06 13:20 | Inpatient (IN) | payer OTHER ==
[~2018-05-06] VITALS: Ht 177.8 cm; Wt 85.7 kg
[2018-05-06 13:20] VITALS: BP_SYST 133
[~2018-05-06 13:20] MED LIST changes: +BUPIVACAINE LIPOSOME/PF 266 MG/20 ML VIAL INFIL ONE; +CLINDAMYCIN PHOSPHATE 900 mg/50mL D5W IV ONE; +DEXAMETHASONE SOD PHOSPHATE 4 MG/ML VIAL IVP ONE; +KETOROLAC TROMETHAMINE 30 MG VIAL IVP ONE; +MIDAZOLAM HCL 5 MG/5 ML VIAL IVP ONE; +ONDANSETRON HCL 4 MG/2 ML VIAL IVP ONE; +PROPOFOL 200MG/ 20ML VIAL (DIPRIVAN) IV ONE; +ROCURONIUM BROMIDE 10 MG/ML (ZEMURON) IV ONE; +SEVOFLURANE 15 MIN GAS INH ONE; +WATER FOR IRRIGATION,STERILE 1,000 ML IRRIG.SOLN IR ONE; +fentaNYL CITRATE/PF 100 MCG/2 ML AMP IVP ONE
[2018-05-06] MEDS ORDERED: NACL 0.9% 1,000 ML IV ONE (13:58)
[2018-05-06 16:07] LABS: CALCIUM 9.2 mg/dL (8.4-11.0); CREATININE 1.13 mg/dL (0.55-1.30); POTASSIUM 3.9 mmol/L (3.5-5.1)
[2018-05-06 16:12] LABS: ALBUMIN 3.5 g/dL (3.4-4.8); TOTAL BILIRUBIN 0.5 mg/dL (0.0-1.0)
[2018-05-06 16:22] LABS: HEMOGLOBIN 11.6 g/dL (12.0-16.0); WHITE BLOOD COUNT (AUTO) 7.5 K/uL (4.8-10.8)
[2018-05-06 16:23] LABS: HEMATOCRIT 37.2 % (36-48); MEAN CORPUSCULAR HEMOGLOBIN 29 pg (27-31); MEAN CORPUSCULAR HGB CONC 31 % (32-36); MEAN CORPUSCULAR VOLUME 93 fL (79.0-98.0); PLATELET COUNT (AUTO) 623 K/uL (130-430); RED CELL DISTRIBUTION WIDTH 15.6 % (9.0-15.0)
[2018-05-06 16:25] LABS: LYMPHOCYTES % (AUTO) 9.9 % (20.5-51.5); NEUTROPHILS % (AUTO) 71.8 % (40.0-70.0)
[2018-05-06 16:25] LABS: PROTHROMBIN TIME 10.5 SECS (9.5-12.5)
[2018-05-06 16:26] LABS: BASOPHILS # (AUTO) 0.1 K/uL (0.0-0.2); EOSINOPHILS # (AUTO) 0.8 K/uL (0.0-0.4); EOSINOPHILS % (AUTO) 11.2 % (0.0-4.0); LYMPHOCYTES # (AUTO) 0.7 K/uL (1.0-5.5); MONOCYTES # (AUTO) 0.5 K/uL (0.0-1.0); MONOCYTES % (AUTO) 6.1 % (1.7-9.3); NEUTROPHILS # (AUTO) 5.4 K/uL (1.8-7.7)
[2018-05-06] MEDS ORDERED: ONDANSETRON HCL 4 MG/2 ML VIAL IVP ONE (17:00)
[2018-05-06] MEDS ORDERED: MORPHINE 4 MG/ML INJ. SYRINGE IVP ONE (17:00)
[2018-05-06 18:21] LABS: BILIRUBIN,URINE NEGATIVE (NEGATIVE); BLOOD, URINE NEGATIVE (NEGATIVE); CLARITY/URINE CLEAR (CLEAR); COLOR,URINE YELLOW (YELLOW); GLUCOSE,URINE NEGATIVE (NEGATIVE); KETONES,URINE NEGATIVE (NEGATIVE); LEUKOCYTE ESTERASE ,URINE NEGATIVE (NEGATIVE); NITRITE, URINE NEGATIVE (NEGATIVE); PH,URINE 6.5 (5.0-8.0); PROTEIN URINE NEGATIVE (NEGATIVE); UROBILINOGEN,URINE 0.2 (0.2-1.0)
[2018-05-06] MEDS ORDERED: ACETAMINOPHEN 325 MG TABLET PO PRN (18:30)
[2018-05-06] MEDS ORDERED: HYDROmorphone 1 MG INJ. 1 MG/ML AMPUL IVP PRN (18:30)
[2018-05-06 18:32] VITALS: BP_SYST 154
[2018-05-06 19:07] VITALS: BP_SYST 148
[2018-05-06 20:11] VITALS: BP_SYST 152
[2018-05-06] MEDS ORDERED: DIPHENHYDRAMINE INJ 50 MG/ML VIAL IVP PRN (20:15)
[2018-05-06] MEDS ORDERED: CYCLOBENZAPRINE HCL 10 MG TABLET (FLEXERIL) PO PRN (20:15)
[2018-05-06] MEDS: ONDANSETRON HCL 4 MG/2 ML VIAL IVP PRN (20:28)
[2018-05-06] MEDS: HYDROmorphone 1 MG INJ. 1 MG/ML AMPUL IVP PRN (20:29)
[2018-05-06] MEDS: DIAZEPAM 5 MG TABLET (VALIUM) PO SCH (21:53)
[2018-05-06] MEDS: LABETALOL HCL 100 MG TABLET PO SCH (21:54)
[2018-05-06] MEDS: NACL 0.9% 1,000 ML IV SCH (21:55)
[2018-05-07 00:14] VITALS: BP_SYST 113
[2018-05-07] MEDS: HYDROmorphone 1 MG INJ. 1 MG/ML AMPUL IVP PRN ×6 (00:17→23:55)
[2018-05-07] MEDS: PROMETHAZINE HCL 25 MG TABLET PO SCH ×5 (00:26→23:54)
[2018-05-07] MEDS: ONDANSETRON HCL 4 MG/2 ML VIAL IVP PRN ×6 (01:45→23:54)
[2018-05-07] MEDS: OMEPRAZOLE 20 MG CAPSULE.DR (PriLOSEC) PO SCH (06:38)
[2018-05-07 07:04] LABS: CALCIUM 8.9 mg/dL (8.4-11.0); CREATININE 0.98 mg/dL (0.55-1.30); POTASSIUM 3.2 mmol/L (3.5-5.1); PROTHROMBIN TIME 10.3 SECS (9.5-12.5)
[2018-05-07 07:12] LABS: HEMATOCRIT 28.6 % (36-48); HEMOGLOBIN 9.5 g/dL (12.0-16.0); MEAN CORPUSCULAR HEMOGLOBIN 29 pg (27-31); MEAN CORPUSCULAR HGB CONC 33 % (32-36); MEAN CORPUSCULAR VOLUME 89 fL (79.0-98.0); PLATELET COUNT (AUTO) 642 K/uL (130-430); RED BLOOD CELL COUNT(AUTO) 3.22 MIL/uL (4.2-6.2); WHITE BLOOD COUNT (AUTO) 5.5 K/uL (4.8-10.8)
[2018-05-07 07:14] LABS: LYMPHOCYTES % (AUTO) 23.3 % (20.5-51.5); NEUTROPHILS % (AUTO) 50.7 % (40.0-70.0)
[2018-05-07 07:15] LABS: BASOPHILS # (AUTO) 0.1 K/uL (0.0-0.2); BASOPHILS % (AUTO) 1.1 % (0.0-2.0); EOSINOPHILS # (AUTO) 0.9 K/uL (0.0-0.4); EOSINOPHILS % (AUTO) 15.9 % (0.0-4.0); LYMPHOCYTES # (AUTO) 1.3 K/uL (1.0-5.5); MONOCYTES # (AUTO) 0.5 K/uL (0.0-1.0); NEUTROPHILS # (AUTO) 2.8 K/uL (1.8-7.7)
[2018-05-07 07:22] LABS: THYROID STIMULATING HORMONE 1.28 uIu/mL (0.36-3.74)
[2018-05-07 08:54] LABS: ERYTHROCYTE SEDIMENTATION RATE 53 MM/HR (0-20)
[2018-05-07] MEDS ORDERED: POTASSIUM CHLORIDE 10 MEQ TAB.PRT.SR PO SCH (09:00)
[2018-05-07 09:50] LABS: TOTAL IRON BIND. CAPACITY 361 ug/dL (250-450)
[2018-05-07 11:42] VITALS: BP_SYST 115
[2018-05-07] MEDS ORDERED: POTASSIUM CHLORIDE 20 MEQ TAB.PRT.SR PO ONE (13:45)
[2018-05-07] MEDS: CHLORTHALIDONE 25 MG TABLET (HYGROTON) PO SCH (14:31)
[2018-05-07] MEDS: MINOXIDIL 10 MG TABLET (LONITEN) PO SCH (14:32)
[2018-05-07] MEDS: DIAZEPAM 5 MG TABLET (VALIUM) PO SCH ×3 (14:34→21:15)
[2018-05-07] MEDS: CHOLECALCIFEROL (VITAMIN D3) 2,000 UNIT TABLET PO SCH (14:34)
[2018-05-07] MEDS: ASCORBIC ACID 500 MG TABLET PO SCH (14:34)
[2018-05-07] MEDS: LABETALOL HCL 100 MG TABLET PO SCH ×2 (14:35→21:16)
[2018-05-07] MEDS: ATORVASTATIN 20 MG TABLET PO SCH (14:40)
[2018-05-07 16:41] VITALS: BP_SYST 119
[2018-05-07 20:00] VITALS: BP_SYST 107
[2018-05-07] MEDS: NACL 0.9% 1,000 ML IV SCH (21:17)
[2018-05-08] VITALS (7 sets, daily range): BP systolic 108–124
[2018-05-08] MEDS: HYDROmorphone 1 MG INJ. 1 MG/ML AMPUL IVP PRN ×5 (04:24→23:40)
[2018-05-08] MEDS: ONDANSETRON HCL 4 MG/2 ML VIAL IVP PRN ×3 (04:24→23:35)
[2018-05-08] MEDS: PROMETHAZINE HCL 25 MG TABLET PO SCH ×4 (06:00→23:18)
[2018-05-08] MEDS: OMEPRAZOLE 20 MG CAPSULE.DR (PriLOSEC) PO SCH (06:37)
[2018-05-08] MEDS: NACL 0.9% 1,000 ML IV SCH ×3 (06:42→23:17)
[2018-05-08 07:54] LABS: ALBUMIN 3.1 g/dL (3.4-4.8); CALCIUM 8.7 mg/dL (8.4-11.0); CREATININE 0.98 mg/dL (0.55-1.30); POTASSIUM 3.9 mmol/L (3.5-5.1); TOTAL BILIRUBIN 0.6 mg/dL (0.0-1.0)
[2018-05-08 08:22] LABS: HEMATOCRIT 29.2 % (36-48); HEMOGLOBIN 9.5 g/dL (12.0-16.0); MEAN CORPUSCULAR HEMOGLOBIN 30 pg (27-31); MEAN CORPUSCULAR HGB CONC 32 % (32-36); MEAN CORPUSCULAR VOLUME 91 fL (79.0-98.0); RED BLOOD CELL COUNT(AUTO) 3.21 MIL/uL (4.2-6.2); WHITE BLOOD COUNT (AUTO) 5.5 K/uL (4.8-10.8)
[2018-05-08 08:23] LABS: BASOPHILS # (AUTO) 0.1 K/uL (0.0-0.2); EOSINOPHILS # (AUTO) 1.2 K/uL (0.0-0.4); EOSINOPHILS % (AUTO) 21.7 % (0.0-4.0); LYMPHOCYTES % (AUTO) 17.9 % (20.5-51.5); MONOCYTES # (AUTO) 0.5 K/uL (0.0-1.0); NEUTROPHILS # (AUTO) 2.8 K/uL (1.8-7.7); NEUTROPHILS % (AUTO) 50.4 % (40.0-70.0); PLATELET COUNT (AUTO) 575 K/uL (130-430)
[2018-05-08] MEDS ORDERED: LR 1,000 ML IV SCH (08:47)
[2018-05-08] MEDS: MINOXIDIL 10 MG TABLET (LONITEN) PO SCH (08:49)
[2018-05-08] MEDS: ATORVASTATIN 20 MG TABLET PO SCH (08:49)
[2018-05-08] MEDS: POTASSIUM CHLORIDE 10 MEQ TAB.PRT.SR PO SCH (08:49)
[2018-05-08] MEDS: CHLORTHALIDONE 25 MG TABLET (HYGROTON) PO SCH (08:49)
[2018-05-08] MEDS: ASCORBIC ACID 500 MG TABLET PO SCH (08:50)
[2018-05-08] MEDS: CHOLECALCIFEROL (VITAMIN D3) 2,000 UNIT TABLET PO SCH (08:50)
[2018-05-08] MEDS: LABETALOL HCL 100 MG TABLET PO SCH ×2 (08:50→20:13)
[2018-05-08] MEDS: DIAZEPAM 5 MG TABLET (VALIUM) PO SCH ×3 (08:50→20:12)
[2018-05-08] MEDS ORDERED: HYDROmorphone 2 MG/ML VIAL IVP PRN ×2 (09:00)
[2018-05-08] MEDS ORDERED: MEPERIDINE HCL/PF 25 MG/ML DISP.SYRIN IVP PRN (09:00)
[2018-05-08] MEDS ORDERED: HYDROmorphone 1 MG INJ. 1 MG/ML AMPUL IVP PRN (09:00)
[2018-05-08] MEDS ORDERED: POLYMYXIN 500,000/BACIT.10,000 UNITS in NS IRR 1 L IR ONE (09:43)
[2018-05-08] MEDS ORDERED: HYDROcodone/ACETAMIN 5-325 MG TAB (NORCO/ VICODIN) PO PRN (10:15)
[2018-05-08] MEDS ORDERED: ONDANSETRON HCL 4 MG/2 ML VIAL IVP PRN (10:15)
[2018-05-08] MEDS ORDERED: HYDROmorphone 2 MG/ML VIAL ONE (10:38)
[2018-05-08] MEDS: D5/0.45 NS 1,000 ML IV SCH ×2 (12:59→20:20)
[2018-05-09 01:20] VITALS: BP_SYST 143
[2018-05-09] MEDS: HYDROmorphone 1 MG INJ. 1 MG/ML AMPUL IVP PRN ×6 (02:37→20:30)
[2018-05-09] MEDS: ONDANSETRON HCL 4 MG/2 ML VIAL IVP PRN ×5 (04:57→20:29)
[2018-05-09] MEDS: OMEPRAZOLE 20 MG CAPSULE.DR (PriLOSEC) PO SCH (05:02)
[2018-05-09] MEDS: D5/0.45 NS 1,000 ML IV SCH (05:02)
[2018-05-09] MEDS: PROMETHAZINE HCL 25 MG TABLET PO SCH ×2 (05:03→12:56)
[2018-05-09 06:59] LABS: HEMATOCRIT 26.8 % (36-48); HEMOGLOBIN 8.9 g/dL (12.0-16.0); MEAN CORPUSCULAR HEMOGLOBIN 29 pg (27-31); MEAN CORPUSCULAR HGB CONC 33 % (32-36); MEAN CORPUSCULAR VOLUME 88 fL (79.0-98.0); PLATELET COUNT (AUTO) 513 K/uL (130-430); RED BLOOD CELL COUNT(AUTO) 3.04 MIL/uL (4.2-6.2); WHITE BLOOD COUNT (AUTO) 4.7 K/uL (4.8-10.8)
[2018-05-09 07:00] LABS: EOSINOPHILS % (AUTO) 1.1 % (0.0-4.0); LYMPHOCYTES % (AUTO) 20.9 % (20.5-51.5); MONOCYTES % (AUTO) 10.4 % (1.7-9.3); NEUTROPHILS % (AUTO) 66.7 % (40.0-70.0)
[2018-05-09 07:01] LABS: BASOPHILS % (AUTO) 0.9 % (0.0-2.0); EOSINOPHILS # (AUTO) 0.1 K/uL (0.0-0.4); MONOCYTES # (AUTO) 0.5 K/uL (0.0-1.0); NEUTROPHILS # (AUTO) 3.1 K/uL (1.8-7.7)
[2018-05-09 07:08] LABS: CALCIUM 8.5 mg/dL (8.4-11.0); CREATININE 0.96 mg/dL (0.55-1.30); POTASSIUM 3.6 mmol/L (3.5-5.1); TOTAL BILIRUBIN 0.3 mg/dL (0.0-1.0)
[2018-05-09 08:14] VITALS: BP_SYST 142
[2018-05-09] MEDS: DIAZEPAM 5 MG TABLET (VALIUM) PO SCH ×3 (09:41→20:28)
[2018-05-09] MEDS: POTASSIUM CHLORIDE 10 MEQ TAB.PRT.SR PO SCH (09:41)
[2018-05-09] MEDS: LABETALOL HCL 100 MG TABLET PO SCH ×2 (09:42→20:28)
[2018-05-09] MEDS: CHOLECALCIFEROL (VITAMIN D3) 2,000 UNIT TABLET PO SCH (09:43)
[2018-05-09] MEDS: MINOXIDIL 10 MG TABLET (LONITEN) PO SCH (09:43)
[2018-05-09] MEDS: ASCORBIC ACID 500 MG TABLET PO SCH (09:43)
[2018-05-09] MEDS: CHLORTHALIDONE 25 MG TABLET (HYGROTON) PO SCH (09:44)
[2018-05-09 11:47] VITALS: BP_SYST 148
[2018-05-09] MEDS: NACL 0.9% 1,000 ML IV SCH (12:15)
[2018-05-09] MEDS ORDERED: MILK OF MAGNESIA 30 ML UDC PO PRN ×2 (15:15→18:00)
[2018-05-09 17:04] VITALS: BP_SYST 113
[2018-05-09] MEDS ORDERED: BISACODYL 5 MG TABLET.DR (DULCOLAX) PO PRN (18:15)
[2018-05-09] MEDS ORDERED: BISACODYL 10 MG/SUPPOSITORY RC PRN (18:15)
[2018-05-09 20:00] VITALS: BP_SYST 113
[2018-05-09] MEDS: ATORVASTATIN 20 MG TABLET PO SCH (20:27)
[2018-05-09] MEDS: DOCUSATE SODIUM 250 MG CAPSULE PO SCH (21:00)
[2018-05-10 00:17] VITALS: BP_SYST 123
[2018-05-10] MEDS: ONDANSETRON HCL 4 MG/2 ML VIAL IVP PRN ×3 (00:34→10:41)
[2018-05-10] MEDS: HYDROmorphone 1 MG INJ. 1 MG/ML AMPUL IVP PRN ×3 (00:42→10:42)
[2018-05-10] MEDS: OMEPRAZOLE 20 MG CAPSULE.DR (PriLOSEC) PO SCH (06:17)
[2018-05-10 06:40] LABS: CALCIUM 8.3 mg/dL (8.4-11.0); CREATININE 1.07 mg/dL (0.55-1.30); POTASSIUM 3.6 mmol/L (3.5-5.1)
[2018-05-10 06:55] LABS: ALBUMIN 2.8 g/dL (3.4-4.8); TOTAL BILIRUBIN 0.3 mg/dL (0.0-1.0)
[2018-05-10 07:21] LABS: HEMATOCRIT 27.3 % (36-48); MEAN CORPUSCULAR HEMOGLOBIN 29 pg (27-31); MEAN CORPUSCULAR HGB CONC 33 % (32-36); MEAN CORPUSCULAR VOLUME 89 fL (79.0-98.0); PLATELET COUNT (AUTO) 508 K/uL (130-430); RED BLOOD CELL COUNT(AUTO) 3.07 MIL/uL (4.2-6.2); RED CELL DISTRIBUTION WIDTH 14.9 % (9.0-15.0); WHITE BLOOD COUNT (AUTO) 6.3 K/uL (4.8-10.8)
[2018-05-10 07:22] LABS: BASOPHILS % (AUTO) 0.5 % (0.0-2.0); EOSINOPHILS % (AUTO) 15.5 % (0.0-4.0); LYMPHOCYTES # (AUTO) 1.1 K/uL (1.0-5.5); LYMPHOCYTES % (AUTO) 17.7 % (20.5-51.5); MONOCYTES % (AUTO) 8.4 % (1.7-9.3); NEUTROPHILS # (AUTO) 3.6 K/uL (1.8-7.7); NEUTROPHILS % (AUTO) 57.9 % (40.0-70.0)
[2018-05-10 07:23] LABS: MONOCYTES # (AUTO) 0.5 K/uL (0.0-1.0)
[2018-05-10 07:40] VITALS: BP_SYST 113
[2018-05-10] MEDS: CHOLECALCIFEROL (VITAMIN D3) 2,000 UNIT TABLET PO SCH (09:52)
[2018-05-10] MEDS: MINOXIDIL 10 MG TABLET (LONITEN) PO SCH (09:54)
[2018-05-10] MEDS: POTASSIUM CHLORIDE 10 MEQ TAB.PRT.SR PO SCH (09:54)
[2018-05-10] MEDS: CHLORTHALIDONE 25 MG TABLET (HYGROTON) PO SCH (09:55)
[2018-05-10] MEDS: DIAZEPAM 5 MG TABLET (VALIUM) PO SCH ×3 (09:55→20:24)
[2018-05-10] MEDS: DOCUSATE SODIUM 250 MG CAPSULE PO SCH ×2 (09:55→20:27)
[2018-05-10] MEDS: ASCORBIC ACID 500 MG TABLET PO SCH (09:55)
[2018-05-10] MEDS: LABETALOL HCL 100 MG TABLET PO SCH ×2 (09:55→20:26)
[2018-05-10 12:05] VITALS: BP_SYST 109
[2018-05-10 16:07] VITALS: BP_SYST 90
[2018-05-10 20:00] VITALS: BP_SYST 109
[2018-05-10] MEDS: ATORVASTATIN 20 MG TABLET PO SCH (20:26)
[2018-05-11 00:21] VITALS: BP_SYST 97
[2018-05-11] MEDS: OMEPRAZOLE 20 MG CAPSULE.DR (PriLOSEC) PO SCH (06:06)
[2018-05-11 07:29] VITALS: BP_SYST 120
[2018-05-11 09:40] VITALS: BP_SYST 131
[2018-05-11] MEDS: CHLORTHALIDONE 25 MG TABLET (HYGROTON) PO SCH (09:45)
[2018-05-11] MEDS: POTASSIUM CHLORIDE 10 MEQ TAB.PRT.SR PO SCH (09:46)
[2018-05-11] MEDS: CHOLECALCIFEROL (VITAMIN D3) 2,000 UNIT TABLET PO SCH (09:47)
[2018-05-11] MEDS: DOCUSATE SODIUM 250 MG CAPSULE PO SCH (09:47)
[2018-05-11] MEDS: ASCORBIC ACID 500 MG TABLET PO SCH (09:47)
[2018-05-11] MEDS: MINOXIDIL 10 MG TABLET (LONITEN) PO SCH (09:47)
[2018-05-11] MEDS: LABETALOL HCL 100 MG TABLET PO SCH (09:47)
[2018-05-11] MEDS: DIAZEPAM 5 MG TABLET (VALIUM) PO SCH ×2 (10:03→15:33)
[2018-05-11 10:46] VITALS: BP_SYST 130
[2018-05-11 16:18] VITALS: BP_SYST 129
[2018-05-11 16:52] VITALS: BP_SYST 111
== END 2018-05-11 19:50 | disposition home health service (06) | DRG 580 ==
LOC: SED 13:20 → SMU 17:53
PROVIDERS: ADMIT Internal Medicine; ATTEND Internal Medicine
PROC: 05HY33Z Insertion of Infusion Device into Upper Vein, Percutaneous Approach (ICD-10-PCS; 2018-05-07)
PROC: B54NZZA Ultrasonography of Left Upper Extremity Veins, Guidance (ICD-10-PCS; 2018-05-07)
PROC: 0W9F0ZZ Drainage of Abdominal Wall, Open Approach (ICD-10-PCS; principal; 2018-05-08 08:00)
DX: S30.1XXA Contusion of abdominal wall, initial encounter (principal); E87.1 Hypo-osmolality and hyponatremia; M19.90 Unspecified osteoarthritis, unspecified site; G43.909 Migraine, unspecified, not intractable, without status migrainosus; E66.9 Obesity, unspecified; E78.5 Hyperlipidemia, unspecified; G89.4 Chronic pain syndrome; K21.9 Gastro-esophageal reflux disease without esophagitis; D64.9 Anemia, unspecified; I10 Essential (primary) hypertension; X58.XXXA Exposure to other specified factors, initial encounter; Y93.89 Activity, other specified; Y92.89 Other specified places as the place of occurrence of the external cause; Y99.8 Other external cause status; Z88.0 Allergy status to penicillin; Z88.8 Allergy status to other drugs, medicaments and biological substances; Z88.1 Allergy status to other antibiotic agents; Z79.899 Other long term (current) drug therapy; Z90.49 Acquired absence of other specified parts of digestive tract
CPT/HCPCS: 36415; 71045; 80048; 80053; 81003; 82607; 82746; 83540-TC; 83550-TC; 83605; 83690-TC; 84443-TC; 84702-TC; 85025; 85610-TC; 85651-TC; 85730-TC; 86886; 86900; 86901; 87040-TC; 87070-TC; 87075-TC; 87081; 93005; 94010; 96361; 96374; 96375; 99285; C1751; C9290; J1100; J1170; J1885; J2250; J2270; J2405; J2704; J3010; J3490; J7030; Q0169

== ENCOUNTER 2018-06-18 15:22 | Outpatient (CLI) | payer OTHER ==
[~2018-06-18 15:22] MED LIST changes: -BUPIVACAINE LIPOSOME/PF 266 MG/20 ML VIAL INFIL ONE; -CLINDAMYCIN PHOSPHATE 900 mg/50mL D5W IV ONE; -DEXAMETHASONE SOD PHOSPHATE 4 MG/ML VIAL IVP ONE; -KETOROLAC TROMETHAMINE 30 MG VIAL IVP ONE; -MIDAZOLAM HCL 5 MG/5 ML VIAL IVP ONE; -ONDANSETRON HCL 4 MG/2 ML VIAL IVP ONE; -PROPOFOL 200MG/ 20ML VIAL (DIPRIVAN) IV ONE; -ROCURONIUM BROMIDE 10 MG/ML (ZEMURON) IV ONE; -SEVOFLURANE 15 MIN GAS INH ONE; -WATER FOR IRRIGATION,STERILE 1,000 ML IRRIG.SOLN IR ONE; -fentaNYL CITRATE/PF 100 MCG/2 ML AMP IVP ONE
== END 2018-06-18 21:23 | disposition home or self-care (01) ==
LOC: SCT 15:22 → SLB 21:23
PROVIDERS: ATTEND Surgery
DX: Z09 Encounter for follow-up examination after completed treatment for conditions other than malignant neoplasm (principal); Z98.890 Other specified postprocedural states; Z87.898 Personal history of other specified conditions
CPT/HCPCS: 36415; 82565-TC; 84520-TC

== ENCOUNTER 2018-06-21 08:34 | Outpatient (CLI) | payer OTHER ==
[2018-06-21] MEDS ORDERED: IOHEXOL 100 ML IV ONE (09:17)
== END 2018-06-21 21:26 | disposition home or self-care (01) ==
LOC: SCT 08:34
PROVIDERS: ATTEND Surgery
DX: R10.9 Unspecified abdominal pain (principal)
CPT/HCPCS: 74176; Q9967

== ENCOUNTER 2018-06-21 19:56 | Inpatient (IN) | payer OTHER ==
[~2018-06-21] VITALS: Ht 177.8 cm; Wt 76.7 kg
[2018-06-21 20:02] VITALS: BP_SYST 162
[2018-06-22 00:34] LABS: CALCIUM 9.1 mg/dL (8.4-11.0); CREATININE 1.23 mg/dL (0.55-1.30); NEUTROPHILS # (AUTO) 1.5 K/uL (1.8-7.7); POTASSIUM 4.2 mmol/L (3.5-5.1)
[2018-06-22 00:40] LABS: ALBUMIN 3.8 g/dL (3.4-4.8); TOTAL BILIRUBIN 0.3 mg/dL (0.0-1.0)
[2018-06-22 00:46] LABS: EOSINOPHILS # (AUTO) 0.2 K/uL (0.0-0.4); EOSINOPHILS % (AUTO) 8.3 % (0.0-4.0); HEMATOCRIT 35.1 % (36-48); HEMOGLOBIN 11.2 g/dL (12.0-16.0); LYMPHOCYTES # (AUTO) 0.9 K/uL (1.0-5.5); LYMPHOCYTES % (AUTO) 31.8 % (20.5-51.5); MEAN CORPUSCULAR HEMOGLOBIN 29 pg (27-31); MEAN CORPUSCULAR HGB CONC 32 % (32-36); MEAN CORPUSCULAR VOLUME 90 fL (79.0-98.0); MONOCYTES # (AUTO) 0.2 K/uL (0.0-1.0); MONOCYTES % (AUTO) 7.8 % (1.7-9.3); NEUTROPHILS % (AUTO) 51.1 % (40.0-70.0); PLATELET COUNT (AUTO) 204 K/uL (130-430); WHITE BLOOD COUNT (AUTO) 2.9 K/uL (4.8-10.8)
[2018-06-22] MEDS ORDERED: MORPHINE 4 MG/ML INJ. SYRINGE IVP ONE (01:15)
[2018-06-22 02:48] VITALS: BP_SYST 173
[2018-06-22] MEDS: HYDROmorphone 1 MG INJ. 1 MG/ML AMPUL IVP PRN ×2 (03:15→07:55)
[2018-06-22 08:00] VITALS: BP_SYST 160
[2018-06-22] MEDS ORDERED: ONDANSETRON HCL 4 MG/2 ML VIAL IVP ONE (10:00)
[2018-06-22] MEDS ORDERED: ONDANSETRON HCL 4 MG/2 ML VIAL ONE (10:24)
[2018-06-22] MEDS ORDERED: ASCORBIC ACID 500 MG TABLET PO ONE (10:45)
[2018-06-22] MEDS ORDERED: CHLORTHALIDONE 25 MG TABLET (HYGROTON) PO ONE (10:45)
[2018-06-22] MEDS ORDERED: ATORVASTATIN 20 MG TABLET PO ONE (10:45)
[2018-06-22] MEDS ORDERED: DIPHENHYDRAMINE HCL 25 MG CAPSULE PO ONE (11:45)
[2018-06-22] MEDS: HYDROmorphone 2 MG/ML VIAL IVP PRN ×3 (11:58→21:09)
[2018-06-22 12:33] VITALS: BP_SYST 123
[2018-06-22] MEDS: DIAZEPAM 5 MG TABLET (VALIUM) PO SCH ×2 (15:05→21:09)
[2018-06-22 17:01] VITALS: BP_SYST 104
[2018-06-22 21:00] VITALS: BP_SYST 114
[2018-06-22] MEDS: LABETALOL HCL 100 MG TABLET PO SCH (21:08)
[2018-06-22] MEDS: DIPHENHYDRAMINE HCL 25 MG CAPSULE PO SCH (21:09)
[2018-06-23 01:29] VITALS: BP_SYST 126
[2018-06-23] MEDS: HYDROmorphone 2 MG/ML VIAL IVP PRN ×3 (02:58→20:24)
[2018-06-23] MEDS: CYCLOBENZAPRINE HCL 10 MG TABLET (FLEXERIL) PO PRN ×2 (03:07→12:06)
[2018-06-23 07:50] VITALS: BP_SYST 131
[2018-06-23] MEDS ORDERED: LIDOCAINE 1%, 20 ML MDV 20 ML ONE (11:11)
[2018-06-23 12:02] VITALS: BP_SYST 148
[2018-06-23] MEDS: DIAZEPAM 5 MG TABLET (VALIUM) PO SCH ×3 (12:03→20:26)
[2018-06-23] MEDS: CHLORTHALIDONE 25 MG TABLET (HYGROTON) PO SCH (12:04)
[2018-06-23] MEDS: OMEPRAZOLE 20 MG CAPSULE.DR (PriLOSEC) PO SCH (12:04)
[2018-06-23] MEDS: ATORVASTATIN 20 MG TABLET PO SCH (12:04)
[2018-06-23] MEDS: MINOXIDIL 10 MG TABLET (LONITEN) PO SCH (12:05)
[2018-06-23] MEDS: DIPHENHYDRAMINE HCL 25 MG CAPSULE PO SCH ×2 (12:05→20:26)
[2018-06-23] MEDS: LABETALOL HCL 100 MG TABLET PO SCH ×2 (12:06→20:26)
[2018-06-23] MEDS: ASCORBIC ACID 500 MG TABLET PO SCH (12:06)
[2018-06-23] MEDS: ENOXAPARIN SODIUM 40 MG/0.4 ML SYRINGE SUBCUT SCH (12:12)
[2018-06-23 15:19] VITALS: BP_SYST 125
[2018-06-23] MEDS: HYDROmorphone 1 MG INJ. 1 MG/ML AMPUL IVP PRN (16:19)
[2018-06-23 20:00] VITALS: BP_SYST 150
[2018-06-24] MEDS: HYDROmorphone 2 MG/ML VIAL IVP PRN ×6 (00:48→22:06)
[2018-06-24 01:14] VITALS: BP_SYST 128
[2018-06-24] MEDS: ONDANSETRON HCL 4 MG/2 ML VIAL IVP PRN ×2 (05:52→17:57)
[2018-06-24] MEDS: ENOXAPARIN SODIUM 40 MG/0.4 ML SYRINGE SUBCUT SCH (09:30)
[2018-06-24] MEDS: ATORVASTATIN 20 MG TABLET PO SCH (09:31)
[2018-06-24] MEDS: OMEPRAZOLE 20 MG CAPSULE.DR (PriLOSEC) PO SCH (09:32)
[2018-06-24] MEDS: DIPHENHYDRAMINE HCL 25 MG CAPSULE PO SCH ×2 (09:33→21:36)
[2018-06-24] MEDS: DIAZEPAM 5 MG TABLET (VALIUM) PO SCH ×3 (09:33→21:36)
[2018-06-24] MEDS: ASCORBIC ACID 500 MG TABLET PO SCH (09:34)
[2018-06-24 12:37] VITALS: BP_SYST 126
[2018-06-24] MEDS: LABETALOL HCL 100 MG TABLET PO SCH ×2 (14:09→21:00)
[2018-06-24] MEDS: MINOXIDIL 10 MG TABLET (LONITEN) PO SCH (14:10)
[2018-06-24] MEDS: CHLORTHALIDONE 25 MG TABLET (HYGROTON) PO SCH (14:11)
[2018-06-24 16:42] VITALS: BP_SYST 103
[2018-06-24 20:10] VITALS: BP_SYST 104
[2018-06-25 00:14] VITALS: BP_SYST 108
[2018-06-25] MEDS: HYDROmorphone 2 MG/ML VIAL IVP PRN ×6 (02:20→23:15)
[2018-06-25] MEDS: ONDANSETRON HCL 4 MG/2 ML VIAL IVP PRN (06:25)
[2018-06-25 08:00] VITALS: BP_SYST 101
[2018-06-25] MEDS: ATORVASTATIN 20 MG TABLET PO SCH (09:12)
[2018-06-25] MEDS: MINOXIDIL 10 MG TABLET (LONITEN) PO SCH (09:13)
[2018-06-25] MEDS: ASCORBIC ACID 500 MG TABLET PO SCH (09:13)
[2018-06-25] MEDS: OMEPRAZOLE 20 MG CAPSULE.DR (PriLOSEC) PO SCH (09:14)
[2018-06-25] MEDS: DIAZEPAM 5 MG TABLET (VALIUM) PO SCH ×3 (09:15→21:42)
[2018-06-25] MEDS: DIPHENHYDRAMINE HCL 25 MG CAPSULE PO SCH ×2 (09:16→21:41)
[2018-06-25] MEDS: CHLORTHALIDONE 25 MG TABLET (HYGROTON) PO SCH (09:16)
[2018-06-25] MEDS: LABETALOL HCL 100 MG TABLET PO SCH ×2 (09:16→21:43)
[2018-06-25] MEDS: ENOXAPARIN SODIUM 40 MG/0.4 ML SYRINGE SUBCUT SCH (09:18)
[2018-06-25] MEDS ORDERED: DIATR MEGLU/DIATRIZ SOD 30 ML SOLUTION PO ONE (11:03)
[2018-06-25 11:31] VITALS: BP_SYST 112
[2018-06-25 15:38] VITALS: BP_SYST 132
[2018-06-25] MEDS ORDERED: BISACODYL 10 MG/SUPPOSITORY RC ONE (16:30)
[2018-06-25] MEDS ORDERED: MAGNESIUM CITRATE 300 ML ORAL SOLUTION PO ONE (16:30)
[2018-06-26 02:22] VITALS: BP_SYST 108
[2018-06-26] MEDS: HYDROmorphone 2 MG/ML VIAL IVP PRN ×4 (03:15→22:03)
[2018-06-26 08:00] VITALS: BP_SYST 130
[2018-06-26 11:24] VITALS: BP_SYST 110
[2018-06-26] MEDS: DIAZEPAM 5 MG TABLET (VALIUM) PO SCH ×3 (12:00→21:52)
[2018-06-26] MEDS: MINOXIDIL 10 MG TABLET (LONITEN) PO SCH (12:18)
[2018-06-26] MEDS: OMEPRAZOLE 20 MG CAPSULE.DR (PriLOSEC) PO SCH (12:19)
[2018-06-26] MEDS: ATORVASTATIN 20 MG TABLET PO SCH (12:19)
[2018-06-26] MEDS: DIPHENHYDRAMINE HCL 25 MG CAPSULE PO SCH ×2 (12:19→21:51)
[2018-06-26] MEDS: LABETALOL HCL 100 MG TABLET PO SCH ×2 (12:20→21:00)
[2018-06-26] MEDS: ASCORBIC ACID 500 MG TABLET PO SCH (12:20)
[2018-06-26] MEDS: CHLORTHALIDONE 25 MG TABLET (HYGROTON) PO SCH (12:20)
[2018-06-26] MEDS: ENOXAPARIN SODIUM 40 MG/0.4 ML SYRINGE SUBCUT SCH (12:27)
[2018-06-26 15:28] VITALS: BP_SYST 125
[2018-06-26] MEDS: ONDANSETRON HCL 4 MG/2 ML VIAL IVP PRN (17:35)
[2018-06-26 20:00] VITALS: BP_SYST 90
[2018-06-26 22:00] VITALS: BP_SYST 104
[2018-06-27 00:43] VITALS: BP_SYST 111
[2018-06-27] MEDS: HYDROmorphone 2 MG/ML VIAL IVP PRN ×6 (01:59→22:54)
[2018-06-27 08:00] VITALS: BP_SYST 125
[2018-06-27] MEDS: DIPHENHYDRAMINE HCL 25 MG CAPSULE PO SCH ×2 (09:37→22:05)
[2018-06-27] MEDS: CHLORTHALIDONE 25 MG TABLET (HYGROTON) PO SCH (09:38)
[2018-06-27] MEDS: ATORVASTATIN 20 MG TABLET PO SCH (09:38)
[2018-06-27] MEDS: OMEPRAZOLE 20 MG CAPSULE.DR (PriLOSEC) PO SCH (09:39)
[2018-06-27] MEDS: LABETALOL HCL 100 MG TABLET PO SCH ×2 (09:39→22:06)
[2018-06-27] MEDS: MINOXIDIL 10 MG TABLET (LONITEN) PO SCH (09:39)
[2018-06-27] MEDS: ASCORBIC ACID 500 MG TABLET PO SCH (09:40)
[2018-06-27] MEDS: DIAZEPAM 5 MG TABLET (VALIUM) PO SCH ×3 (09:40→22:06)
[2018-06-27] MEDS: ENOXAPARIN SODIUM 40 MG/0.4 ML SYRINGE SUBCUT SCH (09:42)
[2018-06-27 11:38] VITALS: BP_SYST 116
[2018-06-27 15:27] VITALS: BP_SYST 112
[2018-06-27 20:54] VITALS: BP_SYST 118
[2018-06-28 00:37] VITALS: BP_SYST 109
[2018-06-28] MEDS: HYDROmorphone 2 MG/ML VIAL IVP PRN ×5 (02:57→23:20)
[2018-06-28 08:00] VITALS: BP_SYST 119
[2018-06-28] MEDS: ONDANSETRON HCL 4 MG/2 ML VIAL IVP PRN (08:37)
[2018-06-28] MEDS: DIPHENHYDRAMINE HCL 25 MG CAPSULE PO SCH ×2 (09:04→21:24)
[2018-06-28] MEDS: MINOXIDIL 10 MG TABLET (LONITEN) PO SCH (09:05)
[2018-06-28] MEDS: ATORVASTATIN 20 MG TABLET PO SCH (09:05)
[2018-06-28] MEDS: ASCORBIC ACID 500 MG TABLET PO SCH (09:05)
[2018-06-28] MEDS: DIAZEPAM 5 MG TABLET (VALIUM) PO SCH ×3 (09:07→21:23)
[2018-06-28] MEDS: LABETALOL HCL 100 MG TABLET PO SCH ×2 (09:08→21:24)
[2018-06-28] MEDS: CHLORTHALIDONE 25 MG TABLET (HYGROTON) PO SCH (09:08)
[2018-06-28] MEDS: OMEPRAZOLE 20 MG CAPSULE.DR (PriLOSEC) PO SCH (09:08)
[2018-06-28] MEDS: ENOXAPARIN SODIUM 40 MG/0.4 ML SYRINGE SUBCUT SCH (09:10)
[2018-06-28 12:58] VITALS: BP_SYST 104
[2018-06-28 15:26] VITALS: BP_SYST 106
[2018-06-28] MEDS ORDERED: LIDOCAINE HCL/PF 1% 10 ML AMPUL INJ ONE (19:30)
[2018-06-28] MEDS ORDERED: methylPREDNISolone ACETATE 40 MG/ML IM ONE (19:30)
[2018-06-28 20:00] VITALS: BP_SYST 119
[2018-06-28] MEDS ORDERED: CLINDAMYCIN 300 MG in D5W 50 ML IV ONE (20:00)
[2018-06-28] MEDS ORDERED: CLINDAMYCIN 600 mg/50mL D5W 50 ML IV ONE (20:31)
[2018-06-29 01:15] VITALS: BP_SYST 122
[2018-06-29] MEDS: HYDROmorphone 2 MG/ML VIAL IVP PRN (03:38)
[2018-06-29 08:05] VITALS: BP_SYST 124
[2018-06-29] MEDS: DIPHENHYDRAMINE HCL 25 MG CAPSULE PO SCH (09:00)
[2018-06-29] MEDS: MINOXIDIL 10 MG TABLET (LONITEN) PO SCH (09:40)
[2018-06-29] MEDS: OMEPRAZOLE 20 MG CAPSULE.DR (PriLOSEC) PO SCH (09:40)
[2018-06-29] MEDS: LABETALOL HCL 100 MG TABLET PO SCH (09:41)
[2018-06-29] MEDS: DIAZEPAM 5 MG TABLET (VALIUM) PO SCH ×2 (09:42→15:13)
[2018-06-29] MEDS: ASCORBIC ACID 500 MG TABLET PO SCH (09:42)
[2018-06-29] MEDS: ENOXAPARIN SODIUM 40 MG/0.4 ML SYRINGE SUBCUT SCH (09:43)
[2018-06-29] MEDS: CHLORTHALIDONE 25 MG TABLET (HYGROTON) PO SCH (09:50)
[2018-06-29] MEDS: ATORVASTATIN 20 MG TABLET PO SCH (09:51)
[2018-06-29 12:52] VITALS: BP_SYST 101
[2018-06-29 14:06] VITALS: BP_SYST 101
[2018-06-29 16:14] VITALS: BP_SYST 101
== END 2018-06-29 19:51 | disposition home or self-care (01) | DRG 921 ==
LOC: SED 19:56 → SMU 06-22 01:25
PROVIDERS: ADMIT Family Medicine; ATTEND Family Medicine
PROC: 0W9F3ZZ Drainage of Abdominal Wall, Percutaneous Approach (ICD-10-PCS; principal; 2018-06-23)
DX: L76.34 Postprocedural seroma of skin and subcutaneous tissue following other procedure (principal); D64.9 Anemia, unspecified; M19.90 Unspecified osteoarthritis, unspecified site; G43.901 Migraine, unspecified, not intractable, with status migrainosus; E78.5 Hyperlipidemia, unspecified; G89.4 Chronic pain syndrome; I10 Essential (primary) hypertension; Y83.8 Other surgical procedures as the cause of abnormal reaction of the patient, or of later complication, without mention of misadventure at the time of the procedure; Z88.0 Allergy status to penicillin; Z88.1 Allergy status to other antibiotic agents; Z88.8 Allergy status to other drugs, medicaments and biological substances; Z79.899 Other long term (current) drug therapy; Z90.49 Acquired absence of other specified parts of digestive tract; Y92.89 Other specified places as the place of occurrence of the external cause
CPT/HCPCS: 36415; 75989-TC; 76700-TC; 80053; 85025; 87070-TC; 87075-TC; 87081; 88108; 96374; 99285; C1729; J1030; J1170; J1650; J2001; J2270; J2405; J3490; J7060; Q0163; Q9964; Q9967